=== PATIENT | male | born 1970 | race Caucasian/White ===

== ENCOUNTER → 2016-05-04 | Outpatient (CLI) | payer BC, OTHER ==
[~2016-05-04] MED LIST: Bupivacaine 0.25% 30 ML SDV INJECT ONE
--- NOTE | 2016-05-04 23:12 | PROC ---
PROVIDER: Patti Corbin CRNA REFERRING PROVIDER: Lorraine Riddle NP in [place]. REFERRAL DIAGNOSIS: Trigger points in the lumbar area. MRI results are not indicated. HISTORY: I have seen this patient previously for trigger points with great success that was about six months ago. The patient had his trigger point injections, actual date of the last injection was 08/27/2015. He did very well following those injections with a great reduction in his overall pain. The patient is back again today after doing quite of bit heavy lifting, bending, twisting, and turning, and over the last couple weeks has had a lot more pain. Today on admission, he is rating his pain about 8/10 or 9/10. He did not have any alteration in his gait or any significant noted alteration on admission. Informed consent was obtained. PROCEDURE: Trigger point injection. PROCEDURE: His back was prepped in a sterile fashion utilizing ChloraPrep. I did identify all of the trigger points prior to the injection. The patient like I said was rating his pain pretty significant today much more than he has had in the past. The procedure in and of itself, all injections were 0.25% Marcaine, preservative free. All injections were aspirating prior to administration of medication. The patient tolerated the procedure without any difficulty. It was all 0.25% Marcaine, preservative free, 2.5 mL in each injection site. The patient did get three injections in the iliocostalis lumborum on the right, 3 injections in the iliocostalis lumborum on the left. The patient then received two additional injections on the right in the multifidi muscle on the right and those injections I gave 40 mg of Kenalog in that injection, and on the other side in the same muscle on the left, the patient received 40 mg of Kenalog in the multifidi muscle on the left. The patient had a significant amount of pain in that overall area, deciding that steroids may help him get to baseline sooner. I did discuss with the patient no heavy lifting, bending, twisting, or turning today. I did tell him to rest, relax, take it easy; to use ice on his back today, no heat; take all normal medications, call the hospital with any questions or concerns at all in regard to the injection. I will follow up with this patient in about one week to see how he is doing, and I will continue to manage his pain as needed. /[id number]/MODL
== END ==
LOC: KA.PAINCL 12:54
PROVIDERS: ATTEND Nurse Anesthetist, Certified Registered
DX: M54.5 Low back pain (principal)
CPT/HCPCS: 20552; J3301; J3490

== ENCOUNTER 2025-01-09 06:30 | Day surgery (SDC) | payer OTHER ==
[2025-01-09] MEDS: Lactated Ringers 1,000 ML IV SCH (06:46)
[2025-01-09] MEDS: Sodium Chloride 0.9% 10 ML Syringe FLUSH PRN (06:47)
[2025-01-09] MEDS ORDERED: Midazolam 1 MG/ML 2 ML SDV ONE (07:33)
[2025-01-09] MEDS ORDERED: Propofol 200 MG/20 ML SDV ONE (07:33)
[2025-01-09] MEDS ORDERED: Ketamine 200 MG/20 ML MDV ONE (07:35)
[2025-01-09 10:06] VITALS: BP 140/88; PULSE 68
== END 2025-01-09 09:40 | disposition home or self-care (01) ==
LOC: KA.SDS 06:30
PROVIDERS: ATTEND Family Medicine
DX: Z12.11 Encounter for screening for malignant neoplasm of colon (principal); K64.9 Unspecified hemorrhoids; K29.50 Unspecified chronic gastritis without bleeding; K21.00 Gastro-esophageal reflux disease with esophagitis, without bleeding; K44.9 Diaphragmatic hernia without obstruction or gangrene; I10 Essential (primary) hypertension; E78.5 Hyperlipidemia, unspecified; E66.9 Obesity, unspecified; Z68.31 Body mass index [BMI] 31.0-31.9, adult; Z88.8 Allergy status to other drugs, medicaments and biological substances; Z79.899 Other long term (current) drug therapy
CPT/HCPCS: 00813; J1596; J2250; J2704; J3490; J7120